=== PATIENT | male | born 1995 | race Caucasian/White ===

== ENCOUNTER 2020-03-14 03:55 | Emergency (ER) | payer OTHER, SELFPAY ==
[2020-03-14 04:04] VITALS: BP 165/108; PULSE 108; RESP 20; TEMP 37.2; O2SAT 97; BMI 18.2
[2020-03-14 04:22] LABS: Add Manual Diff / Slide Review NO; Basophils Absolute Auto 100 /uL (0-100); Basophils Percent Auto 0.4 % (0-2); Eosinophils Absolute Auto 0 /uL (0-450); Eosinophils Percent Auto 0.2 % (2-4); Hematocrit 51.5 % (41-53); Hemoglobin 17.8 g/dL (13.5-17.5); Lymphocytes Absolute Auto 1300 /uL (1100-4500); Lymphocytes Percent Auto 8.6 % (25-40); Mean Corpuscular HGB Conc 34.5 % (30-36); Mean Corpuscular Hemoglobin 32.3 PG (26-34); Mean Corpuscular Volume 93.7 fL (80-100); Monocytes Absolute Auto 700 /uL (0-900); Monocytes Percent Auto 4.7 % (3-14); Neutrophils Absolute Auto 13300 /uL (1500-7000); Neutrophils Percent Auto 86.1 % (50-75); Platelet Count 299 X10^3/uL (150-400); Red Cell Distribution Width 13.7 % (11.6-14.8); White Blood Cell Count 15.5 X10^3/uL (4.5-11.0)
[2020-03-14 04:34] LABS: Alanine Aminotransferase 13 IU/L (<50); Albumin 5.3 g/dL (3.5-5.0); Albumin Globulin Ratio 1.7 (1.0-2.8); Alkaline Phosphatase 102 U/L (38-126); Aspartate Aminotransferase 32 IU/L (17-59); BUN Creatinine Ratio 11.8 (6-22); Bilirubin Total 0.6 mg/dL (0.2-1.3); Blood Urea Nitrogen 10 mg/dL (9-20); Calcium 10.4 mg/dL (8.4-10.2); Carbon Dioxide 23 mmol/L (22-32); Chloride 100 mmol/L (98-107); Estimated Glomerular Filt Rate > 60.0 mL/min (>60); Ethanol (ETOH) < 10 mg/dL; Globulin 3.1 g/dL (1.7-4.1); Glucose 197 mg/dL (70-100); HEMOLYSIS 17 (0-50); Potassium 3.8 mmol/L (3.4-5.1); Sodium 138 mmol/L (137-145); Total Protein 8.4 g/dL (6.3-8.2)
--- NOTE | 2020-03-14 04:34 | ED.PSYCH ---
HPI - Psych <David Valencia DO - Last Filed: 03/14/20 23:24> General Chief Complaint: Toxicology Problem Stated Complaint: on Acid Time Seen by Provider: 03/14/20 03:55 Source: EMS Mode of arrival: EMS Limitations: altered mental status History of Present Illness HPI Narrative: 24M former smoker with history of asthma and mental health issues presents by EMS for evaluation of abnormal behavior and suicidal ideation. Patient and his friend admitted the took acid, mildly some alcohol tonight. He started escalating and per his friend was depressed and feeling suicidal even before taking the above-stated drugs. He entered what appeared to be a bad trip and per his girlfriend became scary and unattached. He was running around completely naked and admits to feeling like he wants to hurt himself but has no specific description of how or why. MD complaint: suicidal ideation and altered mental status Onset (ago): hour(s) Duration: constant History of same: Yes Relieving factors: none Exacerbating factors: alcohol and drug use Context: recent alcohol abuse and recent drug abuse Associated psychiatric symptoms: none Associated symptoms: confusion Treatments prior to arrival: none If self harm: admits thoughts of self harm Related Data Previous Rx's Medication Instructions Recorded albuterol sulfate 90 mcg/actuation 2 puff INHALATION Q4-6H PRN #8.5 11/27/18 aerosol inhaler gram epinephrine 0.3 mg/0.3 mL 0.3 mg IM ONCE PRN #1 each 11/27/18 injection, auto-injector Allergies Allergy/AdvReac Type Severity Reaction Status Date / Time crab Allergy throat Verified 05/02/19 18:56 swells SHRIMP Allergy Severe SWOLLEN Uncoded 07/22/18 13:45 THROAT Review of Systems <David Valencia DO - Last Filed: 03/14/20 23:24> Review of Systems ROS Unobtainable: Unobtainable due to mental condition Patient History <David Valencia DO - Last Filed: 03/14/20 23:24> Social History Smoking Status: Former smoker Smoking Status: Former smoker Substance Use Type: hallucinogens Exam <David Valencia DO - Last Filed: 03/14/20 23:24> Narrative Exam Narrative: GENERAL: [24] year old patient appears stated age. Well-nourished, well-developed patient, disheveled and unkempt. Awake, but confused, with nonsensical speech. HEAD: Atraumatic. Normocephalic. EYES: Pupils dilated, equal, round and reactive. Extraocular motions intact. No scleral icterus. No injection or drainage. ENT: Nose without bleeding, purulent drainage. Throat without erythema, tonsillar hypertrophy or exudate. Airway patent. NECK: Trachea midline. Non tender CARDIOVASCULAR: Regular rate and rhythm without murmurs, gallops, or rubs. RESPIRATORY: Clear to auscultation. Breath sounds equal bilaterally. No wheezes, rales, or rhonchi. GASTROINTESTINAL: Abdomen soft, non-tender, nondistended. EXTREMITIES: No edema or joint tenderness. BACK: Nontender without deformity or crepitance. No flank tenderness. NEURO: AOx3. SKIN: No rash or erythema of visible areas Initial Vital Signs Initial Vital Signs: Vital Signs Temperature 98.9 F 03/14/20 04:04 Pulse Rate 108 H 03/14/20 04:04 Respiratory Rate 03/14/20 04:04 Blood Pressure 165/108 H 03/14/20 04:04 Pulse Oximetry 97 03/14/20 04:04 <Gerald Wilson, DO - Last Filed: 03/14/20 14:52> Initial Vital Signs Initial Vital Signs: Vital Signs Temperature 98.9 F 03/14/20 04:04 Pulse Rate 108 H 03/14/20 04:04 Respiratory Rate 03/14/20 04:04 Blood Pressure 165/108 H 03/14/20 04:04 Pulse Oximetry 97 03/14/20 04:04 Course <David Valencia, DO - Last Filed: 03/14/20 23:24> Course Course Narrative: patient with very disorganized speech. He thinks I am his sister and keeps saying that I (she) deserves. Better. He is calm, but does not follow commands and struggles to communicate when asked questions. He did say that he wanted to hurt himself earlier, but no longer does. It took the medics and police quite awhile to find him as he was running around naked. Patient rests much of the night. Not able to make his own decisions. Will wait for SHELTER CASE MANAGER consult in the morning. Patient signed out to Dr. Wilson for final disposition Orders Ordered: Discontinued Medications Acetaminophen (Tylenol) 975 mg PO NOW ONE Stop: 03/14/20 07:40 Last Admin: 03/14/20 08:16 Dose: 975 mg Documented by: PATTY Lorazepam (Ativan) 1 mg PO NOW ONE Stop: 03/14/20 11:15 Last Admin: 03/14/20 11:24 Dose: 1 mg Documented by: YASEMIN Vital Signs Vital signs: Vital Signs - 8 hr 03/14/20 07:27 03/14/20 11:35 03/14/20 13:48 Pulse Rate 98 H 85 90 Respiratory Rate 20 18 Blood Pressure [Right Arm] 150/68 H 123/76 114/56 L Pulse Oximetry 96 100 98 <Gerald Wilson DO - Last Filed: 03/14/20 14:52> Orders Ordered: Discontinued Medications Acetaminophen (Tylenol) 975 mg PO NOW ONE Stop: 03/14/20 07:40 Last Admin: 03/14/20 08:16 Dose: 975 mg Documented by: PATTY Lorazepam (Ativan) 1 mg PO NOW ONE Stop: 03/14/20 11:15 Last Admin: 03/14/20 11:24 Dose: 1 mg Documented by: YASEMIN Vital Signs Vital signs: Vital Signs - 8 hr 03/14/20 07:27 03/14/20 11:35 03/14/20 13:48 Pulse Rate 98 H 85 90 Respiratory Rate 20 18 Blood Pressure [Right Arm] 150/68 H 123/76 114/56 L Pulse Oximetry 96 100 98 MDM - Psych <David Valencia DO - Last Filed: 03/14/20 23:24> Lab Data Result diagrams: 03/14/20 04:18 03/14/20 04:18 Labs: Lab Results 03/14/20 03/14/20 03/14/20 Range/Units 04:18 04:18 05:21 WBC 15.5 H (4.5-11.0) X10^3/uL RBC 5.50 (4.5-5.9) X10^6/uL Hgb 17.8 H (13.5-17.5) g/dL Hct 51.5 (41-53) % MCV 93.7 (80-100) fL MCH 32.3 (26-34) PG MCHC 34.5 (30-36) % RDW 13.7 (11.6-14.8) % Plt Count 299 (150-400) X10^3/uL Neut % (Auto) 86.1 H (50-75) % Lymph % (Auto) 8.6 L (25-40) % [place] % (Auto) 4.7 (3-14) % Eos % (Auto) 0.2 L (2-4) % Baso % (Auto) 0.4 (0-2) % Neut # (Auto) 50378 H (5555-3895) /uL Lymph # (Auto) 1300 (2793-5046) /uL [place] # (Auto) 700 (0-900) /uL Eos # (Auto) 0 (0-450) /uL Baso # (Auto) 100 (0-100) /uL Sodium 138 (137-145) mmol/L Potassium 3.8 (3.4-5.1) mmol/L Chloride 100 (98-107) mmol/L Carbon Dioxide 23 (22-32) mmol/L BUN 10 (9-20) mg/dL Creatinine 0.85 (0.66-1.25) mg/dL Estimated GFR > 60.0 (>60) mL/min BUN/Creatinine Ratio 11.8 (6-22) Glucose 197 H (70-100) mg/dL Calcium 10.4 H (8.4-10.2) mg/dL Total Bilirubin 0.6 (0.2-1.3) mg/dL AST 32 (17-59) IU/L ALT 13 (<50) IU/L Alkaline Phosphatase 102 (38-126) U/L Total Protein 8.4 H (6.3-8.2) g/dL Albumin 5.3 H (3.5-5.0) g/dL Globulin 3.1 (1.7-4.1) g/dL Albumin/Globulin Ratio 1.7 (1.0-2.8) U Opiates 300ng/mL cut Negative (Negative) Ur Oxycodone Screen Negative (Negative) Urine Methadone Screen Negative (Negative) Ur Barbiturates Screen Negative (Negative) U Tricyclic Antidepress Negative (Negative) Ur Phencyclidine Scrn Negative (Negative) Ur Amphetamines Screen Positive H (Negative) U Methamphetamines Scrn Negative (Negative) Ur MDMA Scrn (Ecstasy) Negative (Negative) U Benzodiazepines Scrn Negative (Negative) Urine Cocaine Screen Positive H (Negative) U Marijuana (THC) Screen Negative (Negative) Ethyl Alcohol < 10 ( - 10) mg/dL Urine Dip Bedside Urine Glucose Negative Bedside Urine Bilirubin - Negative Bedside Urine Ketone +/- 5 Urine Specific [place] 1.010 Bedside Urine Occult Blood - Negative Bedside Urine pH 6.0 Bedside Urine Protein +/- 15 Bedside Urine Urobilinogen - Negative Bedside Urine Nitrite - Negative Bedside Urine Leukocytes - Negative Esterase <Gerald Wilson DO - Last Filed: 03/14/20 14:52> Lab Data Labs: Lab Results 03/14/20 03/14/20 03/14/20 Range/Units 04:18 04:18 05:21 WBC 15.5 H (4.5-11.0) X10^3/uL RBC 5.50 (4.5-5.9) X10^6/uL Hgb 17.8 H (13.5-17.5) g/dL Hct 51.5 (41-53) % MCV 93.7 (80-100) fL MCH 32.3 (26-34) PG MCHC 34.5 (30-36) % RDW 13.7 (11.6-14.8) % Plt Count 299 (150-400) X10^3/uL Neut % (Auto) 86.1 H (50-75) % Lymph % (Auto) 8.6 L (25-40) % [place] % (Auto) 4.7 (3-14) % Eos % (Auto) 0.2 L (2-4) % Baso % (Auto) 0.4 (0-2) % Neut # (Auto) 39811 H (7895-4671) /uL Lymph # (Auto) 1300 (4352-6611) /uL [place] # (Auto) 700 (0-900) /uL Eos # (Auto) 0 (0-450) /uL Baso # (Auto) 100 (0-100) /uL Sodium 138 (137-145) mmol/L Potassium 3.8 (3.4-5.1) mmol/L Chloride 100 (98-107) mmol/L Carbon Dioxide 23 (22-32) mmol/L BUN 10 (9-20) mg/dL Creatinine 0.85 (0.66-1.25) mg/dL Estimated GFR > 60.0 (>60) mL/min BUN/Creatinine Ratio 11.8 (6-22) Glucose 197 H (70-100) mg/dL Calcium 10.4 H (8.4-10.2) mg/dL Total Bilirubin 0.6 (0.2-1.3) mg/dL AST 32 (17-59) IU/L ALT 13 (<50) IU/L Alkaline Phosphatase 102 (38-126) U/L Total Protein 8.4 H (6.3-8.2) g/dL Albumin 5.3 H (3.5-5.0) g/dL Globulin 3.1 (1.7-4.1) g/dL Albumin/Globulin Ratio 1.7 (1.0-2.8) U Opiates 300ng/mL cut Negative (Negative) Ur Oxycodone Screen Negative (Negative) Urine Methadone Screen Negative (Negative) Ur Barbiturates Screen Negative (Negative) U Tricyclic Antidepress Negative (Negative) Ur Phencyclidine Scrn Negative (Negative) Ur Amphetamines Screen Positive H (Negative) U Methamphetamines Scrn Negative (Negative) Ur MDMA Scrn (Ecstasy) Negative (Negative) U Benzodiazepines Scrn Negative (Negative) Urine Cocaine Screen Positive H (Negative) U Marijuana (THC) Screen Negative (Negative) Ethyl Alcohol < 10 ( - 10) mg/dL Urine Dip Bedside Urine Glucose Negative Bedside Urine Bilirubin - Negative Bedside Urine Ketone +/- 5 Urine Specific [place] 1.010 Bedside Urine Occult Blood - Negative Bedside Urine pH 6.0 Bedside Urine Protein +/- 15 Bedside Urine Urobilinogen - Negative Bedside Urine Nitrite - Negative Bedside Urine Leukocytes - Negative Esterase MDM Narrative Medical decision making narrative: Dr wilson: Received turned over. Reviewed patient's history and physical. Perform my own history and physical exam. Evaluated the patient. Upon my evaluation patient was alert and oriented x3. GCS of 15. Denied suicidal or homicidal ideation. He still thinks that he is having some affects from the drugs that he took last evening. He states that he took more than what he initially thought. He stated that he did feel safe going home however wanted to remain here in the emergency department for just a little while longer until some of the ?colors quit that he was seeing had improved. He was observed in the emergency department for several more hours. He tolerated oral intake. Slept for a period of time. Was seen by social work. Patient then stated that he felt safe going home. He was given return precautions and follow-up instructions. He expressed understanding and agreement. Restraint [id number] <David Valencia, DO - Last Filed: 03/14/20 23:24> Restraint [id number]-[id number] Evaluation [id number]-[id number] #1: Date: 03/14/20 Time: 04:34 Patient Appearance: Unkempt, Disheveled and Bizarre Level of Consciousness: Alert and Disoriented Speech Pattern: Animated and Difficulty Finding Words Mood Description: Anxious and Fearful Ability to Follow Directions: Poor Hallucination Type: Visual Thought Process: Disorganized Respirations: Normal respiratory rate Cardiac: Regular Rhythm Circulation: Moves all extremities Behavior necessitating restraint: Suicidal Restraint risks explained to patient: Yes Restraint risks explained to family: No Discharge Plan Departure Patient Disposition: Home Clinical Impression: Drug abuse Discharge Date/Time: 03/14/20 14:32 Instructions: DI for Drug Abuse and Drug Addiction Activity Restrictions/Additional Instructions: No driving for the next 24 hours. Contact your primary provider for follow-up. If you do not have a primary provider you can contact [phone] this is the health resource is coordinator here at the hospital who can help you. Return to the emergency department for any new or worsening symptoms Prescriptions: No Action epinephrine 0.3 mg/0.3 mL auto-injector 0.3 mg IM ONCE PRN (Reason: anaphylaxis) Qty: 1 RF: 3 albuterol sulfate 90 mcg/actuation HFA aerosol inhaler 2 puff INHALATION Q4-6H PRN (Reason: shortness of breath or wheezing) Qty: 8.5 RF: 3
--- NOTE | 2020-03-14 04:40 | PC.NURSE ---
Pt. is laying in the bed. The pt. is very emotional but is now staring to calm down and relax.
--- NOTE | 2020-03-14 05:11 | PC.NURSE ---
FIELD ACCOUNT DIRECTOR in talking w/ p.t.
--- NOTE | 2020-03-14 05:15 | PC.NURSE ---
Reports taking a dose of adderall along with 2 pills of acid.
--- NOTE | 2020-03-14 05:18 | PC.NURSE ---
Pt states I thought I was going to [facility], so I ran out of my house. Then these anchorer came and started to interrogate me and I thought they were trying to send me to [facility]. Pt is able to state he is at the hospital and is responding to staff.
[2020-03-14 06:01] LABS: Ur Creatinine Normal (Normal); Ur Specific Gravity Normal (Normal); Urine pH Normal (Normal)
[2020-03-14 06:02] LABS: UR Morphine/Opiate cutoff 300 Negative (Negative); Urine Amphetamines Positive (Negative); Urine Barbiturates Negative (Negative); Urine Benzodiazepines Negative (Negative); Urine Cocaine Positive (Negative); Urine MDMA Negative (Negative); Urine Methadone Negative (Negative); Urine Methamphetamines Negative (Negative); Urine Oxycodone Negative (Negative); Urine Phencyclidine Negative (Negative); Urine Tetrahydrocannabinol Negative (Negative); Urine Tricyclic Antidepressant Negative (Negative)
[2020-03-14 07:27] VITALS: BP 150/68; PULSE 98; O2SAT 96
--- NOTE | 2020-03-14 07:35 | PC.NURSE ---
Pt is a/o x 4. Denies suicidal / homicidal thoughts. Taking po fluids. Tone is moderated but feels very emotional about everything last night. Denies pain except for headache. Tylenol ordered.
[2020-03-14] MEDS: ACETAMINOPHEN 325 MG TABLET 975 MG PO (08:16)
--- NOTE | 2020-03-14 08:19 | PC.NURSE ---
Medicated for headache pain w/ tylenol. Pt is tearful, states I can't make decisions right now. Reinforced that he was in a safe place and does not have to leave right now. Given warm blankets for comfort. Taking po fluids.
--- NOTE | 2020-03-14 11:13 | PC.NURSE ---
Assumed pt care from KENTRELL Parks. Eneida with Case Management just finished speaking with the pt. She reccomends giving him something for anxiety and she will be calling his friend (Nii [phone]) to pick him up.
[2020-03-14] MEDS: LORazepam 0.5 MG TABLET 1 MG PO (11:24)
[2020-03-14 11:35] VITALS: BP 123/76; PULSE 85; RESP 20; O2SAT 100
[2020-03-14 13:48] VITALS: BP 114/56; PULSE 90; RESP 18; O2SAT 98
== END 2020-03-14 14:32 | disposition home or self-care (01) ==
PROVIDERS: Emergency Medicine; Emergency Provider Emergency Medicine
DX: R45.851 Suicidal ideations (principal); F19.10 Other psychoactive substance abuse, uncomplicated; F32.9 Major depressive disorder, single episode, unspecified
CPT/HCPCS: 36415; 70450; 80053; 80305; 80320; 81003; 84443; 85025; 99284; 99285

== ENCOUNTER 2020-03-14 20:20 | Emergency (ER) | payer OTHER, SELFPAY ==
[2020-03-14 20:25] VITALS: BP 130/70; PULSE 108; RESP 15; TEMP 37.4; O2SAT 98; BMI 18.2
--- NOTE | 2020-03-14 20:25 | ED_ITS ---
HPI - Psych General Chief Complaint: Psychiatric Symptoms Stated Complaint: mental health eval Time Seen by Provider: 03/14/20 20:22 Source: patient Mode of arrival: Ambulatory Limitations: no limitations History of Present Illness HPI Narrative: 24-year-old male history of depression and polysubstance abuse returns to the emergency department, complaining of depression. He states that he denies any suicidal or homicidal ideation. He states he feels very down, and depressed because he is afraid that due to his actions last night he lost all of his friends. He was seen and evaluated in the emergency department after having a ?bad trip ?after taking some acid, MDMA and some alcohol. He was medically cleared observed overnight and had interactions with our medical social workers today and was sent home. Patient lives at home alone and has no firearms. He has never had SI/HI. He has local friends, mother lives in [place] with renea and has BiPolar disorder. Father lives in [place]. No siblings. MD complaint: feels depressed Onset (ago): hour(s) Duration: constant History of same: No Relieving factors: none Exacerbating factors: alcohol and drug use Context: recent alcohol abuse and recent drug abuse Associated psychiatric symptoms: depression Associated symptoms: denies other symptoms Treatments prior to arrival: none Related Data Previous Rx's Medication Instructions Recorded albuterol sulfate 90 mcg/actuation 2 puff INHALATION Q4-6H PRN #8.5 11/27/18 aerosol inhaler gram epinephrine 0.3 mg/0.3 mL 0.3 mg IM ONCE PRN #1 each 11/27/18 injection, auto-injector Allergies Allergy/AdvReac Type Severity Reaction Status Date / Time crab Allergy throat Verified 05/02/19 18:56 swells SHRIMP Allergy Severe SWOLLEN Uncoded 07/22/18 13:45 THROAT Review of Systems Constitutional Constitutional: Denies chills, Denies fatigue, Denies fever(s), Denies frequent falls, Reports headache(s), Denies lethargy and Denies weakness Eyes Eyes: Denies change in vision, Denies eye discharge, Denies irritation and Denies loss of vision ENT Ears, Nose, Mouth, and Throat: Denies change in voice, Denies dizziness, Reports headache(s), Denies neck pain, Denies sore throat and Denies throat swelling Cardiovascular Cardiovascular: Denies chest pain, Denies irregular heart rhythm, Denies lightheadedness, Denies palpitations, Denies dyspnea, Denies dyspnea on exertion and Denies orthopnea Respiratory Respiratory: Denies cough, Denies dyspnea, Denies dyspnea on exertion and Denies wheezing Gastrointestinal Gastrointestinal: Denies abdominal pain, Denies change in bowel habits, Denies diarrhea, Denies nausea and Denies vomiting Musculoskeletal Musculoskeletal: Denies neck pain and Denies numbness Integumentary/Breasts Skin/Breast: Denies pruritus, Denies erythema, Denies rash and Denies wounds Neurologic Neurologic: Denies behavioral changes, Denies confusion, Denies dizziness, Denies frequent falls, Reports headache(s), Denies loss of vision, Denies numbness and Denies weakness Psychiatric Psychiatric: Denies anxiety, Denies behavioral changes, Denies confusion, Reports depression, Denies homicidal ideation and Denies suicidal ideation Endocrine Endocrine: Denies fatigue, Denies flushing and Denies palpitations Hematologic/Lymphatic Hematologic/Lymphatic: Denies easy bruising Allergic/Immunologic Allergic/Immunologic: Denies urticaria, Denies throat swelling and Denies wheezing Patient History Social History Smoking Status: Former smoker Smoking Status: Former smoker Substance Use Type: hallucinogens Exam Narrative Exam Narrative: GENERAL: [24] year old patient appears stated age. Well- nourished, well-developed patient, in mild distress. HEAD: Tender scalp hematoma on left parietal region. Likely from trauma, no sign of erythema, or fluctuancce. EYES: Pupils equal round and reactive. Extraocular motions intact. No scleral icterus. No injection or drainage. ENT: Nose without bleeding, purulent drainage. Throat without erythema, tonsillar hypertrophy or exudate. Airway patent. NECK: Trachea midline. Non tender CARDIOVASCULAR: Regular rate and rhythm without murmurs, gallops, or rubs. RESPIRATORY: Clear to auscultation. Breath sounds equal bilaterally. No wheezes, rales, or rhonchi. GASTROINTESTINAL: Abdomen soft, non-tender, nondistended. EXTREMITIES: No edema or joint tenderness. BACK: Nontender without deformity or crepitance. No flank tenderness. NEURO: AOx3. SKIN: No rash or erythema of visible areas Initial Vital Signs Initial Vital Signs: Vital Signs Temperature 99.4 F 03/14/20 20:25 Pulse Rate 108 H 03/14/20 20:25 Respiratory Rate 15 03/14/20 20:25 Blood Pressure 130/70 03/14/20 20:25 Pulse Oximetry 98 03/14/20 20:25 Course Course Course Narrative: patient feels depressed from his behavior yesterday, he is afraid that he may have alienated his best friends. He denies SI/HI. He is able to care for himself. Head CT negative, performed to rule out internal injury as a consequence of his behavior yesterday, also to rule out space occupying lesion which may contribute to behavior change. Patient has support in the form of friends, and family in [place] (his step father drove up and is in waiting room). Patient has no access to firearms. He feels much better knowing that he has close follow up with Crisis Team (tomorrow as established by nursing). He understands return precautions, has had questions answered to his apparent satisfaction. He is able to contract for safety. Orders Ordered: ED Orders 03/14/20 20:50 Consult to [facility] - Mail Officer Urgent 03/14/20 21:07 Complete Blood Count AUTO DIFF Stat Comprehensive Metabolic Panel Stat Ethanol (ETOH) Stat Thyroid Stimulating Hormone Stat 03/14/20 21:11 CT head/brain wo con Stat Vital Signs Vital signs: Vital Signs - 8 hr 03/14/20 20:25 03/14/20 22:54 Temperature 99.4 F Pulse Rate 108 H 89 Respiratory Rate 15 16 Blood Pressure 130/70 130/74 Pulse Oximetry 98 96 [facility] - Psych Lab Data Result diagrams: 03/14/20 21:07 03/14/20 21:07 Labs: Lab Results 03/14/20 03/14/20 03/14/20 Range/Units 21:07 21:07 21:07 WBC 10.6 (4.5-11.0) X10^3/uL RBC 5.17 (4.5-5.9) X10^6/uL Hgb 17.1 (13.5-17.5) g/dL Hct 48.5 (41-53) % MCV 93.8 (80-100) fL MCH 33.1 (26-34) PG MCHC 35.2 (30-36) % RDW 13.7 (11.6-14.8) % Plt Count 229 (150-400) X10^3/uL Neut % (Auto) 77.8 H (50-75) % Lymph % (Auto) 13.8 L (25-40) % [place] % (Auto) 7.4 (3-14) % Eos % (Auto) 0.6 L (2-4) % Baso % (Auto) 0.4 (0-2) % Neut # (Auto) 8300 H (0376-9458) /uL Lymph # (Auto) 1500 (0952-2835) /uL [place] # (Auto) 800 (0-900) /uL Eos # (Auto) 100 (0-450) /uL Baso # (Auto) 0 (0-100) /uL Sodium 137 (137-145) mmol/L Potassium 3.8 (3.4-5.1) mmol/L Chloride 101 (98-107) mmol/L Carbon Dioxide 27 (22-32) mmol/L BUN 10 (9-20) mg/dL Creatinine 0.77 (0.66-1.25) mg/dL Estimated GFR > 60.0 (>60) mL/min BUN/Creatinine Ratio 13.0 (6-22) Glucose 109 H (70-100) mg/dL Calcium 9.7 (8.4-10.2) mg/dL Total Bilirubin 1.0 (0.2-1.3) mg/dL AST 26 (17-59) IU/L ALT 10 (<50) IU/L Alkaline Phosphatase 80 (38-126) U/L Total Protein 7.6 (6.3-8.2) g/dL Albumin 4.7 (3.5-5.0) g/dL Globulin 2.9 (1.7-4.1) g/dL Albumin/Globulin Ratio 1.6 (1.0-2.8) TSH 1.09 (0.47-4.68) uIU/mL Ethyl Alcohol < 10 ( - 10) mg/dL Imaging Data CT scan - head: Radiologist's Impression: Savage Loomis 24 M [address] [address] [address] Scan Report Signed Patient: Savage Loomis CMR#: [id number] : 1995Acct:[id number] Age/Sex: 24 / MDate of Service: 03/14/20 Loc: ED Accession Number: [id number] Procedure: CT head/brain wo con Ordering Provider: David Valencia D.O. PROCEDURE: CT HEAD/BRAIN WO CON INDICATIONS: head injury, scalp contusion, behavior change TECHNIQUE: Noncontrast 4.5 mm thick angled axial sections acquired from the foramen magnum to the vertex, with coronal and sagittal reformats. For radiation dose reduction, the following was used: automated exposure control, adjustment of mA and/or kV according to patient size. COMPARISON: None. FINDINGS: Image quality: Excellent. CSF spaces: Basal cisterns are patent. No extra-axial fluid collections. Ventricles are normal in size and shape. Brain: No midline shift. No intracranial masses or hemorrhage. Gale-white matter interface is normal. Skull and face: Calvarium and visualized facial bones are intact, without suspicious lesions. Sinuses: Visualized sinuses and mastoids are clear. IMPRESSION: No acute intracranial disease process. Dictated by: Indy Bond MD, PhD on 03/14/2020 at 21:41 Approved by: Indy Bond MD, PhD on 03/14/2020 at 21:43 Discharge Plan Departure Patient Disposition: Home Clinical Impression: Depression Qualifiers: Depression Type: major depressive disorder Major depression recurrence: single episode Active/Remission status: currently active Major depression episode severity: moderate Qualified Code(s): F32.1 - Major depressive disorder, single episode, moderate Discharge Date/Time: 03/14/20 22:55 Instructions: Depression Activity Restrictions/Additional Instructions: *You have been diagnosed with [acute depression] *What to do: * avoid alcohol and street drugs. *[facility] will contact you tomorrow to move forward with crisis intervention. *Return to ER if you should have any new, worsening or concerning symptoms *You may go to [email or web address] online to anonymously chat with a mental health professional or you may text help to [phone] on your cell phone. Prescriptions: No Action epinephrine 0.3 mg/0.3 mL auto-injector 0.3 mg IM ONCE PRN (Reason: anaphylaxis) Qty: 1 RF: 3 albuterol sulfate 90 mcg/actuation HFA aerosol inhaler 2 puff INHALATION Q4-6H PRN (Reason: shortness of breath or wheezing) Qty: 8.5 RF: 3 Referrals: [facility] [Outside]
--- NOTE | 2020-03-14 21:11 | DI.CT.S_ITS ---
PROCEDURE: CT HEAD/BRAIN WO CON INDICATIONS: head injury, scalp contusion, behavior change TECHNIQUE: Noncontrast 4.5 mm thick angled axial sections acquired from the foramen magnum to the vertex, with coronal and sagittal reformats. For radiation dose reduction, the following was used: automated exposure control, adjustment of mA and/or kV according to patient size. COMPARISON: None. FINDINGS: Image quality: Excellent. CSF spaces: Basal cisterns are patent. No extra-axial fluid collections. Ventricles are normal in size and shape. Brain: No midline shift. No intracranial masses or hemorrhage. Gale-white matter interface is normal. Skull and face: Calvarium and visualized facial bones are intact, without suspicious lesions. Sinuses: Visualized sinuses and mastoids are clear. IMPRESSION: No acute intracranial disease process. Dictated by: Indy Bond MD, PhD on 03/14/2020 at 21:41 Approved by: Indy Bond MD, PhD on 03/14/2020 at 21:43
[2020-03-14 21:14] LABS: Add Manual Diff / Slide Review NO; Basophils Absolute Auto 0 /uL (0-100); Basophils Percent Auto 0.4 % (0-2); Eosinophils Absolute Auto 100 /uL (0-450); Eosinophils Percent Auto 0.6 % (2-4); Hematocrit 48.5 % (41-53); Hemoglobin 17.1 g/dL (13.5-17.5); Lymphocytes Absolute Auto 1500 /uL (1100-4500); Lymphocytes Percent Auto 13.8 % (25-40); Mean Corpuscular HGB Conc 35.2 % (30-36); Mean Corpuscular Hemoglobin 33.1 PG (26-34); Mean Corpuscular Volume 93.8 fL (80-100); Monocytes Absolute Auto 800 /uL (0-900); Monocytes Percent Auto 7.4 % (3-14); Neutrophils Absolute Auto 8300 /uL (1500-7000); Neutrophils Percent Auto 77.8 % (50-75); Platelet Count 229 X10^3/uL (150-400); Red Blood Cell Count 5.17 X10^6/uL (4.5-5.9); Red Cell Distribution Width 13.7 % (11.6-14.8); White Blood Cell Count 10.6 X10^3/uL (4.5-11.0)
[2020-03-14 21:25] LABS: Alanine Aminotransferase 10 IU/L (<50); Albumin 4.7 g/dL (3.5-5.0); Albumin Globulin Ratio 1.6 (1.0-2.8); Alkaline Phosphatase 80 U/L (38-126); Aspartate Aminotransferase 26 IU/L (17-59); Blood Urea Nitrogen 10 mg/dL (9-20); Calcium 9.7 mg/dL (8.4-10.2); Carbon Dioxide 27 mmol/L (22-32); Chloride 101 mmol/L (98-107); Estimated Glomerular Filt Rate > 60.0 mL/min (>60); Ethanol (ETOH) < 10 mg/dL; Globulin 2.9 g/dL (1.7-4.1); Glucose 109 mg/dL (70-100); HEMOLYSIS < 15 (0-50); Potassium 3.8 mmol/L (3.4-5.1); Sodium 137 mmol/L (137-145); Total Protein 7.6 g/dL (6.3-8.2)
[2020-03-14 22:03] LABS: Thyroid Stimulating Hormone 1.09 uIU/mL (0.47-4.68)
--- NOTE | 2020-03-14 22:24 | PC.NURSE ---
IVAN contacted to set up a crisis appt for tomorrow per wishes. Spoke with Dinh and passed on pt's information. He states that he will pass that information on to someone who will call the pt around 1600 tomorrow. Pt informed to expect the call.
[2020-03-14 22:54] VITALS: BP 130/74; PULSE 89; RESP 16; O2SAT 96
== END 2020-03-14 22:55 | disposition home or self-care (01) ==
PROVIDERS: Emergency Provider Emergency Medicine
DX: F32.1 Major depressive disorder, single episode, moderate (principal); S09.90XA Unspecified injury of head, initial encounter
CPT/HCPCS: 36415; 70450; 80053; 80320; 84443; 85025; 99283; 99284

== ENCOUNTER 2022-01-23 05:55 | Emergency (ER) | payer OTHER, MEDICAID, SELFPAY ==
[2022-01-23 06:01] VITALS: BP 139/69; PULSE 72; RESP 18; TEMP 36.6; O2SAT 97
--- NOTE | 2022-01-23 06:49 | ED.WOUNDLAC ---
HPI - Wound/Laceration General Chief Complaint: Wound/Laceration Stated Complaint: fell and hit face rt side possible stiches Time Seen by Provider: 01/23/22 06:42 Source: patient Mode of arrival: Ambulatory History of Present Illness HPI narrative: Patient is a healthy 26-year-old male who presents with right facial injury. 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 He had some bleeding last night but went to sleep. Woke up and felt like it was still bleeding. He washed it out. But was worried he might need stitches. He did not lose conscious. He has no nausea or vomiting. Overall feeling okay but worried about cuts on his face. Related Data Previous Rx's Medication Instructions Recorded albuterol sulfate 90 mcg/actuation 2 puff INHALATION Q4-6H PRN #8.5 11/27/18 aerosol inhaler gram epinephrine 0.3 mg/0.3 mL 0.3 mg (0.3 mL) IM ONCE PRN #1 each 11/27/18 injection, auto-injector Allergies Allergy/AdvReac Type Severity Reaction Status Date / Time crab Allergy throat Verified 05/02/19 18:56 swells SHRIMP Allergy Severe SWOLLEN Uncoded 07/22/18 13:45 THROAT Review of Systems Review of Systems Narrative: GENERAL: Denies chills,fever HEENT: Denies throat pain RESPIRATORY: Denies dyspnea, cough, wheezing CARDIOVASCULAR: Denies chest pain, palpitations GASTROINTESTINAL: Denies nausea, vomiting MUSCULOSKELETAL: Denies extremity pain, injury SKIN: See HPI NEUROLOGIC: Denies weakness, dizziness, headache, numbness 8 point review of systems is negative except for those stated above and HPI Patient History Social History Smoking Status: Former smoker Smoking Status: Former smoker tobacco type: cigarettes alcohol intake frequency: 3 or more drinks per day Substance Use Type: hallucinogens Exam Initial Vital Signs Initial Vital Signs: Vital Signs Temperature 98 F 01/23/22 06:01 Pulse Rate 72 01/23/22 06:01 Respiratory Rate 18 01/23/22 06:01 Blood Pressure 139/69 01/23/22 06:01 Pulse Oximetry 97 01/23/22 06:01 GENERAL: Well-appearing, well-nourished and in no acute distress. CARDIOVASCULAR: peripheral pulses in tact, cap refill <2 sec RESPIRATORY: No respiratory distress, speaks in full sentences without difficulty EXTREMITIES: Normal range of motion, no clubbing or edema. Neurovascularly intact NEUROLOGICAL: Cranial nerves II through XII grossly intact. Normal gait and speech. SKIN: 1 cm laceration just lateral to right eye good skin approximation, 2 cm laceration right cheek good skin approximation Procedures Laceration Repair Laceration 1: Site: face Side (If applicable): right Size (cm): 1 Description: linear Depth: simple, single layer Skin layer closed with: steri-strips Laceration 2: Site: face Side (If applicable): right Size (cm): 2 Description: linear Depth: simple, single layer Skin layer closed with: steri-strips Course Orders Ordered: Discontinued Medications Diphtheria/Tetanus/Acell Pertussis (Tet,Diph,Pertuss(Acell),Vac/Pf 0.5 Ml Syringe) 0.5 ml IM .ONCE ONE Stop: 01/23/22 06:51 Last Admin: 01/23/22 06:53 Dose: 0.5 ml Documented by: KHALIF Vital Signs Vital signs: Vital Signs - 8 hr 01/23/22 06:01 Temperature 98 F Pulse Rate 72 Respiratory Rate 18 Blood Pressure 139/69 Pulse Oximetry 97 MDM - Wound/Laceration MDM Narrative Medical decision making narrative: Patient's lacerations were Steri stripped. Discharge Plan Departure Patient Disposition: Home Clinical Impression: Superficial laceration of face Instructions: DI for Laceration Repair-Skin Closure Strips Activity Restrictions/Additional Instructions: *You have been diagnosed with superficial lacerations of face *What to do: Leave Steri-Strips on until they fall off. The once off apply Neosporin or antibiotic ointment to help prevent scarring. Keep clean and dry with soap and water. *Continue to take medications as directed *Follow up with your primary care provider in 2-3 days or call [phone] *Return to ER if you should have redness swelling drainage or any new, worsening or concerning symptoms Prescriptions: No Action epinephrine 0.3 mg/0.3 mL auto-injector 0.3 mg IM ONCE PRN (Reason: anaphylaxis) Qty: 1 3RF albuterol sulfate 90 mcg/actuation HFA aerosol inhaler 2 puff INHALATION Q4-6H PRN (Reason: shortness of breath or wheezing) Qty: 8.5 3RF Stand Alone Forms: Work Release Note
[2022-01-23] MEDS: TET,DIPH,PERTUSS(ACELL),VAC/PF 0.5 ML SYRINGE IM (06:53)
--- NOTE | 2022-01-23 07:12 | PC.NURSE ---
He has 2 lacs on left face,one 1 cm and one 2 cm,both linear with scant drainage,cleaned and steri strips applied by DR Diaz.
[2022-01-23 07:14] VITALS: BP 140/70; PULSE 76; RESP 18; O2SAT 99
== END 2022-01-23 07:15 | disposition home or self-care (01) ==
PROVIDERS: Emergency Provider Emergency Medicine
DX: S01.411A Laceration without foreign body of right cheek and temporomandibular area, initial encounter (principal); S01.111A Laceration without foreign body of right eyelid and periocular area, initial encounter; W22.8XXA Striking against or struck by other objects, initial encounter; Y92.814 Boat as the place of occurrence of the external cause; Z23 Encounter for immunization
CPT/HCPCS: 90471; 99283; 90715

== ENCOUNTER → 2025-01-09 08:25 | Outpatient (CLI) | payer OTHER, SELFPAY ==
--- NOTE | 2025-01-09 08:28 | DI.RAD.S_ITS ---
PROCEDURE: XR SHOULDER RT MIN 2V INDICATIONS: Right shoulder strain TECHNIQUE: 3 views of the shoulder were acquired. COMPARISON: None. FINDINGS: Bones: No fractures or dislocations. No suspicious bony lesions. Visualized ribs appear intact. Soft tissues: No suspicious soft tissue calcifications. IMPRESSION: No definite radiographic abnormality. If pain persists with conservative management, consider repeat plain films or cross sectional imaging such as CT or MRI for further assessment. Dictated by: Rohan Willis [facility] Interpreted: Donna Greene MD on 01/09/2025 at 10:09 Transcribed by: ADAN on 01/09/2025 at 10:10 Approved by: Donna Greene M.D. on 01/10/2025 at 7:22
== END ==
PROVIDERS: PCP Family Medicine; Referring Provider Nurse Practitioner Family; Visit Provider Nurse Practitioner Family
DX: S46.911A Strain of unspecified muscle, fascia and tendon at shoulder and upper arm level, right arm, initial encounter (principal); X58.XXXA Exposure to other specified factors, initial encounter
CPT/HCPCS: 73030

== ENCOUNTER 2025-06-02 16:01 | Emergency (ER) | payer OTHER, SELFPAY ==
[2025-06-02 16:17] VITALS: BP 129/77; PULSE 79; RESP 16; TEMP 36.7; O2SAT 99; BMI 19.3
--- NOTE | 2025-06-02 17:27 | ED_ITS ---
<Statement entered by Shaggy Jeffries, DO - 06/02/25 18:37> Co-sign attestation statement: I was available for consultation during this patient's emergency department visit. This chart is signed by myself for administrative purposes only. I did not have direct contact with this patient during this visit. They were seen independently by the APC. HPI - Wound/Laceration General Chief Complaint: Wound/Laceration Stated Complaint: injury to nose Time Seen by Provider: 06/02/25 16:38 Source: patient Mode of arrival: Ambulatory History of Present Illness HPI narrative: 29-year-old male presents to the emergency department with a laceration to the bridge of his nose after catching it with a dirty dust jacobs. Tetanus status unknown. Related Data Previous Rx's ?Medication ?Instructions ?Recorded albuterol sulfate 90 mcg/actuation 2 puff inhalation Q 4-6H PRN 11/27/18 aerosol inhaler shortness of breath or wheez ing #8.5 grams epinephrine 0.3 mg/0.3 mL 0.3 mg (0.3 mL) IM ONCE PRN 11/27/18 injection, auto-injector anaphylaxis #1 ea amoxicillin 875 mg-potassium 1 tab PO BID Laceration w ound 5 06/02/25 clavulanate 125 mg tablet days #10 tabs Allergies Allergy/AdvReac Type Severity Reaction Status Date / Time shellfish derived Allergy Severe Anaphylaxis Verified 06/02/25 16:21 crab Allergy throat Verified 06/02/25 16:21 swells SHRIMP Allergy Severe SWOLLEN Uncoded 06/02/25 16:21 THROAT Review of Systems Review of Systems Narrative: Narrative: See HPI. GENERAL: Denies chills, fatigue, fever, sweats. HEENT: Denies sinus pain, ear pain, sore throat, difficulty swallowing, dizziness. RESPIRATORY: Denies dyspnea, cough, wheezing, sputum. CARDIOVASCULAR: Denies chest pain, palpitations, edema. GASTROINTESTINAL: Denies nausea, vomiting, abdominal pain, diarrhea, constipation. MSK: Denies weakness, joint pain, or bony pain. SKIN: Denies rash, skin lesions, or pruritis. Endorses laceration to bridge of nose. NEUROLOGIC: Denies weakness, dizziness, headache, numbness, confusion. Patient History Social History Smoking Status: Former smoker Smoking Status: Former smoker tobacco type: cigarettes alcohol intake frequency: 3 or more drinks per day Exam Narrative Exam Narrative: Exam Narrative: GENERAL: This is a well-nourished, well-developed patient, in no acute distress HEAD: Traumatic. Normocephalic. ENT: Nose with bleeding, secondary to nasal laceration. Airway patent. RESPIRATORY: Respiratory rate and effort are normal. MSK: Moves all extremities. Normal range of motion, no clubbing or edema. Neurovascularly intact. NEURO: A&O x 3. SKIN: Warm, dry, no rashes or lesions noted. Initial Vital Signs Initial Vital Signs: Vital Signs Temperature 98.1 F 06/02/25 16:17 Pulse Rate 79 06/02/25 16:17 Respiratory Rate 16 06/02/25 16:17 Blood Pressure 129/77 06/02/25 16:17 Pulse Oximetry 99 06/02/25 16:17 Oxygen Delivery Method Room Air 06/02/25 16:17 Reviewed Course Vital Signs Vital signs: Vital Signs - 8 hr 06/02/25 16:17 Temperature 98.1 F Pulse Rate 79 Respiratory Rate 16 Blood Pressure 129/77 Pulse Oximetry 99 Oxygen Delivery Method Room Air MDM - Wound/Laceration Differential Diagnosis Differential diagnosis: Likely laceration MDM Narrative Medical decision making narrative: 29-year-old male with laceration to bridge of nose. Site was cleansed, anesthetized and closed with 4 - 6.0 sutures. Patient tolerated procedure well. Due to it being a dirty wound, will send in prophylactic antibiotics. Patient is unsure if he wants his tetanus status updated and will therefore follow up with his family doctor or local pharmacy for any tetanus update. Discussed plan of care, to return in 5-7 days for suture removal, wound care and return precautions with patient, who verbalized understanding and was agreeable with course of action. Discharge Plan Departure Patient Disposition: Home Clinical Impression: Laceration Instructions: DI for Laceration Repair Activity Restrictions/Additional Instructions: *You have been diagnosed with a laceration to your nose. We were able to close the laceration with 4 sutures. Please follow-up with your family doctor or presents to the walk-in clinic or the emergency department in 5-7 days for suture removal. I will place you on a prophylactic antibiotics since this was a dirty wound. If you determined that you would like your tetanus status updated, please follow-up with your family doctor, go to the walk-in clinic or a local pharmacy. For any worsening symptoms, please return to the emergency department. *What to do: *Please continue to take your regular medications as directed. [ ] New medication prescriptions sent to your pharmacy: [ ] [x ] New medication written as a paper prescription [ ] No new medications given *Please follow up with your primary care provider in 2-3 days, call for an appointment. Let them know you were seen in the Emergency Department and that we ask that you be seen in follow up. We will electronically transmit a record of today's note if your PCP is in our system *If you do not have a primary care provider please contact the [facility] Resource line at [phone]. They will ask some questions about your medical history and help get you set up with a doctor in the community. ? Return to ER if you should have any new, worsening or concerning symptoms, such as worsening pain, severe headache, confusion, chest pain, difficulty breathing, fever greater than 101 F, shaking chills, persistent vomiting to the point that you cannot drink fluids, or other new or worsening symptoms. Prescriptions: New amoxicillin-pot clavulanate 875-125 mg tablet 1 tab PO BID 5 Days Qty: 10 0RF No Action epinephrine 0.3 mg/0.3 mL auto-injector 0.3 mg IM ONCE PRN (Reason: anaphylaxis) Qty: 1 3RF albuterol sulfate 90 mcg/actuation HFA aerosol inhaler 2 puff INHALATION Q4-6H PRN (Reason: shortness of breath or wheezing) Qty: 8.5 3RF Referrals: Ember Barbosa MD [Primary Care Provider, Medical] Stand Alone Forms: Patient Portal/API
== END 2025-06-02 17:35 | disposition home or self-care (01) ==
PROVIDERS: Emergency Provider Registered Nurse; PCP Family Medicine
DX: S01.21XA Laceration without foreign body of nose, initial encounter (principal); W22.8XXA Striking against or struck by other objects, initial encounter
CPT/HCPCS: 12011; 99282; 99283